=== PATIENT | female | born 1965 | race African-American/Black ===

== ENCOUNTER 2019-01-04 12:39 | Emergency (ER) | payer MEDICAID ==
[~2019-01-04] VITALS: Ht 167.6 cm; Wt 50.0 kg
[2019-01-04 12:49] VITALS: BP 112/68
[2019-01-04] MEDS ORDERED: KETOROLAC 60MG/2ML VIAL IM STA (14:26)
[2019-01-04 14:36] LABS: CLARITY URINE CLOUDY (CLEAR); COLOR URINE DARK YELLOW (YELLOW); KETONES URINE NEGATIVE (NEGATIVE); LEUKOCYTE ESTERASE URINE 1+ (NEGATIVE); NITRITE URINE POSITIVE (NEGATIVE); OCCULT BLOOD URINE NEGATIVE (NEGATIVE); PH URINE 5.5 (4.5-8.0); PROTEIN URINE TRACE (NEGATIVE); SPECIFIC GRAVITY URINE 1.021 (1.005-1.030)
[2019-01-04] MEDS ORDERED: CEFTRIAXONE SODIUM 1 G/VIAL IM ONE (15:30)
[2019-01-04] MEDS ORDERED: LIDOCAINE HCL/PF 1% 10 MG/ML 5ML VIAL IJ ONE (15:30)
== END 2019-01-04 16:09 | disposition home or self-care (01) ==
LOC: ER 12:39
DX: M54.5 Low back pain (principal); G89.29 Other chronic pain; N39.0 Urinary tract infection, site not specified; K29.00 Acute gastritis without bleeding; I25.10 Atherosclerotic heart disease of native coronary artery without angina pectoris; M19.90 Unspecified osteoarthritis, unspecified site; I10 Essential (primary) hypertension; F17.210 Nicotine dependence, cigarettes, uncomplicated
CPT/HCPCS: 81003; 96372; 99283; J0696; J1885; J3490

== ENCOUNTER 2021-11-16 05:24 | Emergency (ER) | payer MEDICAID, OTHER ==
[~2021-11-16] VITALS: Ht 167.6 cm; Wt 57.0 kg
[2021-11-16] MEDS ORDERED: SULF1TAB48 MT (07:28)
[2021-11-16] MEDS ORDERED: CEPH500T MT (07:28)
[2021-11-16] MEDS ORDERED: IBUPROFEN 600MG TABLET PO ONE (07:30)
[2021-11-16 07:56] VITALS: BP 154/78
== END 2021-11-16 07:57 | disposition home or self-care (01) ==
LOC: ER 05:24
DX: S10.86XA Insect bite of other specified part of neck, initial encounter (principal); L03.221 Cellulitis of neck; W57.XXXA Bitten or stung by nonvenomous insect and other nonvenomous arthropods, initial encounter; Y93.89 Activity, other specified; Y92.89 Other specified places as the place of occurrence of the external cause; Y99.8 Other external cause status; J45.909 Unspecified asthma, uncomplicated; I10 Essential (primary) hypertension; F12.10 Cannabis abuse, uncomplicated
CPT/HCPCS: 99283

== ENCOUNTER 2021-11-24 00:43 | Inpatient (IN) | payer OTHER ==
[~2021-11-24] VITALS: Ht 167.6 cm; Wt 50.8 kg
[~2021-11-24 00:43] MED LIST: CEPH500T MT; SULF1TAB48 MT
[2021-11-24] MEDS ORDERED: CEFTRIAXONE 2 G PREMIX 50 ML IV ONE (02:00)
[2021-11-24] MEDS ORDERED: METRONIDAZOLE 500 MG PREMIX 100 ML IV ONE (02:00)
[2021-11-24] MEDS ORDERED: DEXAMETHASONE 10 MG/ML VIAL IV ONE (02:00)
[2021-11-24 02:49] LABS: BASOPHILS % 0.7 % (0.0-2.0); EOSINOPHILS % 6.2 % (0.0-5.0); LYMPHOCYTES % 18.2 % (20.0-50.0); MEAN CORPUSCULAR HEMOGLOBIN 36.6 pg (28.0-32.0); MEAN CORPUSCULAR VOLUME 104.6 fL (81.0-99.0); MEAN PLATELET VOLUME 7.2 fl (7.4-10.4); MONOCYTES % 7.5 % (2.0-8.0); NEUTROPHILS % 67.4 % (40.0-76.0); PLATELET 444 x1000/uL (130-400); RED BLOOD CELL COUNT 4.11 mill/uL (4.2-5.4); RED CELL DISTRIBUTION WIDTH 13.5 % (11.6-14.6)
[2021-11-24] MEDS ORDERED: CEFTRIAXONE 2 G in DEXTROSE 5% WATER 50 ML IV SCH (03:00)
[2021-11-24 03:12] LABS: CHLORIDE 102 mEq/L (98-107)
[2021-11-24] MEDS ORDERED: DEXAMETHASONE 10 MG/ML VIAL IV SCH (03:30)
[2021-11-24] MEDS ORDERED: LIDOCAINE HCL 1% 20ML VIAL (Pyxis) INJ INFIL ONE (04:45)
[2021-11-24] MEDS ORDERED: MORPHINE SULFATE 4 MG/ML CPJ (NOT FOR IM USE) IV ONE (05:45)
[2021-11-24] MEDS ORDERED: IOHEXOL-300 100 ML BOTTLE ONE (07:01)
[2021-11-24 08:00] VITALS: BP 125/60
[2021-11-24] MEDS ORDERED: ONDANSETRON HCL 4MG/2ML INJ IV PRN (09:30)
[2021-11-24] MEDS ORDERED: ACETAMINOPHEN 325MG TABLET PO PRN (09:30)
[2021-11-24] MEDS ORDERED: AMPICILLIN SOD/SULBACTAM NA 3 G in SODIUM CHLORIDE 0.9% 100 ML IV SCH (11:00)
[2021-11-24] MEDS: AMPICILLIN SOD/SULBACTAM NA 3 G in SODIUM CHLORIDE 0.9% 100 ML IV SCH ×2 (11:17→22:37)
[2021-11-24] MEDS ORDERED: NALOXONE HCL 0.4MG/ML VIAL IV PRN (15:15)
[2021-11-24 16:11] VITALS: BP 125/65
[2021-11-24 16:25] VITALS: BP 123/80
[2021-11-24 20:00] VITALS: BP 104/55
[2021-11-24] MEDS: HYDROCODONE/ACETAMINOPHEN 5/325MG TABLET PO PRN (23:42)
[2021-11-25] VITALS: BP 104/50
[2021-11-25 04:00] VITALS: BP 115/51
[2021-11-25 08:00] VITALS: BP 116/62
[2021-11-25] MEDS: AMPICILLIN SOD/SULBACTAM NA 3 G in SODIUM CHLORIDE 0.9% 100 ML IV SCH (11:12)
[2021-11-25] MEDS: HYDROCODONE/ACETAMINOPHEN 5/325MG TABLET PO PRN (11:17)
[2021-11-25 12:00] VITALS: BP 137/72
[2021-11-25] MEDS ORDERED: AMOX-424 MT (12:09)
[2021-11-25 12:14] VITALS: BP 137/72
== END 2021-11-25 13:30 | disposition home or self-care (01) | DRG 383 ==
LOC: ER 00:43 → 8WST 05:32 → ENRESERV 07:28
PROVIDERS: ADMIT Internal Medicine; ATTEND Internal Medicine
PROC: 0H94XZZ Drainage of Neck Skin, External Approach (ICD-10-PCS; principal; 2021-11-24)
DX: L03.221 Cellulitis of neck (principal); N17.0 Acute kidney failure with tubular necrosis; J45.909 Unspecified asthma, uncomplicated; L02.11 Cutaneous abscess of neck; E87.1 Hypo-osmolality and hyponatremia; I10 Essential (primary) hypertension; F12.90 Cannabis use, unspecified, uncomplicated; Z79.899 Other long term (current) drug therapy
CPT/HCPCS: 36415; 70491; 80053; 83605; 84145; 85025; 99285; J0295; J0696; J1100; J2270; J3490; J7050; J7060; Q9967

== ENCOUNTER 2022-01-28 13:53 | Emergency (ER) | payer MEDICAID, OTHER ==
[~2022-01-28] VITALS: Ht 170.2 cm; Wt 75.0 kg
[~2022-01-28 13:53] MED LIST changes: +AMOX-424 MT; -CEPH500T MT; -SULF1TAB48 MT
[2022-01-28] MEDS ORDERED: METHYLPREDNISOLONE SOD SUCC 125 MG/2 ML VIAL IV ONE (14:45)
[2022-01-28] MEDS ORDERED: TRANEXAMIC ACID 1,000 MG/10 ML IV ONE (14:45)
[2022-01-28] MEDS ORDERED: DIPHENHYDRAMINE 50MG/ML VIAL IV ONE (14:45)
[2022-01-28 19:30] VITALS: BP 140/70
[2022-01-28] MEDS ORDERED: AMLO5TAB88 MT (20:46)
[2022-01-28] MEDS ORDERED: P50 MT (20:50)
== END 2022-01-28 21:28 | disposition home or self-care (01) ==
LOC: ER 13:53
DX: T78.3XXA Angioneurotic edema, initial encounter (principal); I10 Essential (primary) hypertension; J45.909 Unspecified asthma, uncomplicated; F12.10 Cannabis abuse, uncomplicated
CPT/HCPCS: 93005; 96374; 96375; 99284; J1200; J2930

== ENCOUNTER 2022-02-19 20:17 | Emergency (ER) | payer OTHER ==
[~2022-02-19] VITALS: Ht 167.6 cm; Wt 55.0 kg
[~2022-02-19 20:17] MED LIST changes: +AMLO5TAB88 MT; +P50 MT
[2022-02-19] MEDS ORDERED: KETOROLAC 60MG/2ML VIAL IM ONE (21:15)
[2022-02-19] MEDS ORDERED: IBUP-2029 MT (23:53)
[2022-02-19] MEDS ORDERED: CYCL10TA21 MT (23:53)
[2022-02-20 00:37] VITALS: BP 157/84
== END 2022-02-20 00:39 | disposition home or self-care (01) ==
LOC: ER 20:17
DX: M54.2 Cervicalgia (principal); F12.10 Cannabis abuse, uncomplicated; J45.909 Unspecified asthma, uncomplicated; I10 Essential (primary) hypertension; Z79.899 Other long term (current) drug therapy
CPT/HCPCS: 72125; 96372; 99284; J1885

== ENCOUNTER 2022-04-05 15:12 | Inpatient (IN) | payer MEDICAID, OTHER ==
[~2022-04-05] VITALS: Ht 167.6 cm; Wt 56.7 kg
[~2022-04-05 15:12] MED LIST changes: +CYCL10TA21 MT; +IBUP-2029 MT
[2022-04-05] MEDS ORDERED: DIPHENHYDRAMINE 50MG/ML VIAL IV ONE (15:45)
[2022-04-05] MEDS ORDERED: FAMOTIDINE 20MG/2ML VIAL IV ONE (15:45)
[2022-04-05] MEDS ORDERED: DEXAMETHASONE 4MG TABLET PO ONE (15:45)
[2022-04-05 16:50] LABS: CHLORIDE 109 mEq/L (98-107)
[2022-04-05 16:58] LABS: ETHANOL BLOOD < 10 mg/dL
[2022-04-05 17:05] LABS: BASOPHILS % 0.8 % (0.0-2.0); EOSINOPHILS % 6.1 % (0.0-5.0); HEMATOCRIT. 37.5 % (36.0-48.0); HEMOGLOBIN. 12.9 g/dL (12.0-16.0); LYMPHOCYTES % 16.8 % (20.0-50.0); MEAN CORPUSCULAR HEMOGLOBIN 36.4 pg (28.0-32.0); MEAN CORPUSCULAR VOLUME 105.7 fL (81.0-99.0); MEAN PLATELET VOLUME 7.8 fl (7.4-10.4); MONOCYTES % 6.6 % (2.0-8.0); NEUTROPHILS % 69.7 % (40.0-76.0); PLATELET 247 x1000/uL (130-400); RED BLOOD CELL COUNT 3.55 mill/uL (4.2-5.4); RED CELL DISTRIBUTION WIDTH 13.4 % (11.6-14.6)
[2022-04-05 22:10] VITALS: BP 129/58
[2022-04-05 22:25] VITALS: BP 122/60
[2022-04-05 23:25] VITALS: BP 153/64
[2022-04-05 23:42] VITALS: BP 131/63
[2022-04-06] VITALS (7 sets, daily range): BP systolic 110–182; BP diastolic 65–92
[2022-04-06] MEDS ORDERED: DIPHENHYDRAMINE 50MG/ML VIAL IV PRN (02:45)
[2022-04-06] MEDS ORDERED: PNEUMOCOCCAL 23-VAL P-SAC VAC 0.5 ML IM ONE (04:45)
[2022-04-06] MEDS ORDERED: METHYLPREDNISOLONE SOD SUCC 40 MG/ML VIAL IV SCH (06:00)
[2022-04-06] MEDS ORDERED: IPRATROPIUM/ALBUTEROL 0.5-3(2.5)MG/3ML NEB HHN PRN (10:15)
[2022-04-06] MEDS ORDERED: LORAZEPAM 0.5MG TABLET PO PRN (10:15)
[2022-04-06] MEDS ORDERED: ONDANSETRON HCL 4MG/2ML INJ IV PRN (10:15)
[2022-04-06] MEDS ORDERED: ACETAMINOPHEN 325MG TABLET PO PRN ×2 (10:15)
[2022-04-06] MEDS ORDERED: DOCUSATE SODIUM 100MG CAPSULE PO PRN (10:15)
[2022-04-06] MEDS ORDERED: AMLODIPINE 5MG TABLET PO SCH (10:15)
[2022-04-06] MEDS ORDERED: CLONIDINE 0.1MG TABLET PO PRN (10:15)
[2022-04-06] MEDS ORDERED: HYDROCODONE/ACETAMINOPHEN 5/325MG TABLET PO PRN (10:15)
[2022-04-06 10:37] LABS: BASOPHILS % 0.2 % (0.0-2.0); HEMATOCRIT. 37.4 % (36.0-48.0); HEMOGLOBIN. 12.8 g/dL (12.0-16.0); LYMPHOCYTES % 12.2 % (20.0-50.0); MEAN CORPUSCULAR HEMOGLOBIN 36.8 pg (28.0-32.0); MEAN CORPUSCULAR VOLUME 107.3 fL (81.0-99.0); MEAN PLATELET VOLUME 8.5 fl (7.4-10.4); NEUTROPHILS % 85.6 % (40.0-76.0); PLATELET 247 x1000/uL (130-400); RED BLOOD CELL COUNT 3.48 mill/uL (4.2-5.4); RED CELL DISTRIBUTION WIDTH 13.2 % (11.6-14.6)
[2022-04-06 10:46] LABS: CHLORIDE 109 mEq/L (98-107)
[2022-04-06] MEDS: METHYLPREDNISOLONE SOD SUCC 40 MG/ML VIAL IV SCH (17:54)
[2022-04-06] MEDS ORDERED: FAMOTIDINE 20MG/2ML VIAL IV SCH (21:00)
[2022-04-06] MEDS: HYDRALAZINE HCL 10MG TABLET PO SCH (21:06)
[2022-04-07] VITALS: BP 152/59
[2022-04-07 04:00] VITALS: BP 142/60
[2022-04-07] MEDS: HYDRALAZINE HCL 10MG TABLET PO SCH (05:08)
[2022-04-07 06:30] LABS: BASOPHILS % 0.1 % (0.0-2.0); HEMATOCRIT. 35.2 % (36.0-48.0); HEMOGLOBIN. 12.2 g/dL (12.0-16.0); LYMPHOCYTES % 10.5 % (20.0-50.0); MEAN CORPUSCULAR HEMOGLOBIN 36.7 pg (28.0-32.0); MEAN PLATELET VOLUME 8.9 fl (7.4-10.4); MONOCYTES % 3.4 % (2.0-8.0); PLATELET 249 x1000/uL (130-400); RED BLOOD CELL COUNT 3.32 mill/uL (4.2-5.4); RED CELL DISTRIBUTION WIDTH 12.8 % (11.6-14.6)
[2022-04-07 06:54] LABS: CHLORIDE 107 mEq/L (98-107)
[2022-04-07 08:08] VITALS: BP 150/68
[2022-04-07] MEDS ORDERED: FAMO20TA8 MT (09:09)
[2022-04-07] MEDS ORDERED: HYDR-4133 PO (09:09)
[2022-04-07] MEDS ORDERED: P20 MT (09:09)
[2022-04-07] MEDS ORDERED: DIPH25CA83 MT (09:09)
[2022-04-07] MEDS ORDERED: AMLODIPINE 5MG TABLET PO SCH (09:45)
[2022-04-07] MEDS: METHYLPREDNISOLONE SOD SUCC 40 MG/ML VIAL IV SCH (09:54)
[2022-04-07 11:13] LABS: T4 FREE 0.78 ng/dL (0.76-1.46)
[2022-04-07 12:00] VITALS: BP 120/71
[2022-04-07 16:00] VITALS: BP 113/59
[2022-04-07 16:56] VITALS: BP 120/71
[2022-04-07] MEDS ORDERED: FAMOTIDINE 20MG TABLET PO SCH (21:00)
== END 2022-04-07 17:30 | disposition home or self-care (01) | DRG 811 ==
LOC: ER 15:45 → 7EST 19:16 → EDBEDREQTM 19:37 → EDBEDREQ 19:37
PROVIDERS: ADMIT Internal Medicine; ATTEND Internal Medicine
PROC: 30233K1 Transfusion of Nonautologous Frozen Plasma into Peripheral Vein, Percutaneous Approach (ICD-10-PCS; principal; 2022-04-05)
DX: T78.3XXA Angioneurotic edema, initial encounter (principal); E78.5 Hyperlipidemia, unspecified; T46.4X5A Adverse effect of angiotensin-converting-enzyme inhibitors, initial encounter; I10 Essential (primary) hypertension; J44.9 Chronic obstructive pulmonary disease, unspecified; Z20.822 Contact with and (suspected) exposure to COVID-19; F17.200 Nicotine dependence, unspecified, uncomplicated; F12.90 Cannabis use, unspecified, uncomplicated; Z88.8 Allergy status to other drugs, medicaments and biological substances; Z79.899 Other long term (current) drug therapy; Y92.89 Other specified places as the place of occurrence of the external cause
CPT/HCPCS: 36415; 71045; 80048; 80053; 80320; 84439; 84443; 84481; 85025; 86850; 86900; 86927; 87426; 93005; 93306; 99291; C9803; J1200; J2920; J3490; J8540; P9017; G0480

== ENCOUNTER 2022-06-02 06:08 | Emergency (ER) | payer MEDICAID ==
[~2022-06-02] VITALS: Ht 165.1 cm; Wt 54.0 kg
[~2022-06-02 06:08] MED LIST changes: -AMLO5TAB88 MT; -AMOX-424 MT; +DIPH25CA83 MT; +FAMO20TA8 MT; +HYDR-4133 PO; -IBUP-2029 MT; +P20 MT; -P50 MT
[2022-06-02] MEDS ORDERED: KETOROLAC 60MG/2ML VIAL IM ONE (06:45)
[2022-06-02 07:17] VITALS: BP 119/77
[2022-06-02 07:38] LABS: CHLORIDE 101 mEq/L (98-107)
[2022-06-02 07:48] LABS: BASOPHILS % 0.6 % (0.0-2.0); EOSINOPHILS % 0.3 % (0.0-5.0); HEMATOCRIT. 36.4 % (36.0-48.0); HEMOGLOBIN. 12.7 g/dL (12.0-16.0); LYMPHOCYTES % 7.3 % (20.0-50.0); MEAN CORPUSCULAR HEMOGLOBIN 36.2 pg (28.0-32.0); MEAN CORPUSCULAR VOLUME 104.3 fL (81.0-99.0); MEAN PLATELET VOLUME 8.5 fl (7.4-10.4); MONOCYTES % 7.2 % (2.0-8.0); NEUTROPHILS % 84.6 % (40.0-76.0); PLATELET 252 x1000/uL (130-400); RED BLOOD CELL COUNT 3.49 mill/uL (4.2-5.4); RED CELL DISTRIBUTION WIDTH 13.6 % (11.6-14.6)
[2022-06-02 08:18] LABS: CLARITY URINE CLEAR (CLEAR); COLOR URINE DARK YELLOW (YELLOW); KETONES URINE TRACE (NEGATIVE); LEUKOCYTE ESTERASE URINE 1+ (NEGATIVE); NITRITE URINE NEGATIVE (NEGATIVE); OCCULT BLOOD URINE NEGATIVE (NEGATIVE); PH URINE 5.5 (4.5-8.0); PROTEIN URINE 2+ (NEGATIVE); SPECIFIC GRAVITY URINE 1.029 (1.005-1.030)
[2022-06-02] MEDS ORDERED: NITR-87 MT (10:31)
[2022-06-02] MEDS ORDERED: DICL50TA9 MT (10:31)
== END 2022-06-02 10:45 | disposition home or self-care (01) ==
LOC: ER 06:26
DX: M47.9 Spondylosis, unspecified (principal); N39.0 Urinary tract infection, site not specified; F12.10 Cannabis abuse, uncomplicated; I10 Essential (primary) hypertension; Z88.8 Allergy status to other drugs, medicaments and biological substances; Z98.890 Other specified postprocedural states
CPT/HCPCS: 36415; 72040; 72100; 80053; 81003; 85025; 96372; 99284; J1885